=== PATIENT | female | born 1945 | race Caucasian/White ===

== ENCOUNTER 2022-11-25 14:52 | Emergency (ER) | payer MEDICARE, SELFPAY ==
[2022-11-25 15:15] VITALS: BP 130/82; BP 147/85; PULSE 100; PULSE 104; RESP 18; TEMP 36.9; O2SAT 98; BMI 25.4
--- NOTE | 2022-11-25 16:07 | MHC.CM.ED ---
Received case management consult from Dr Hunter. Patient resides at [facility]. She wandered from her facility and ended up at the [facility]. Patient was brought to the ER by EMS. Patient's social media intern, Jared, from [employer] present and bedside with patient. Jared has been in contact with patient's daughter and the director of [facility] to try to transfer patient to a higher level of care in their facility. Received telephone call from patient's daughter, Tara Noland. She can be reached via telephone at [phone]. Tara lives in [place] and is trying to arrange a flight here to assist patient. Per Tara, patient started exhibiting memory issues 2 years ago. Tara tried to convince patient to move closer to her at that time and patient refused. Anticipate patient will stay in ER until safe discharge plan can be arranged. Continue to monitor for d/c needs.
--- NOTE | 2022-11-25 16:50 | ED.GENADULT ---
HPI - General Adult General Chief complaint: General Medical Stated complaint: AMS,LEFT SNF,FOUND BY PD ON LOT PER EMS Time Seen by Provider: 11/25/22 15:03 Source: patient and other Mode of arrival: EMS History of Present Illness HPI narrative: 77-year-old female is brought in by [place] police after she was found to be at the [facility] and had left [facility] regular assisted living facility. Patient's private case preparer and liner is at bedside, Jared, and provides additional information as patient suffers from dementia. He states that patient has been at the facility for approximately 3 weeks after an extensive evaluation and workup through [facility] [place]. Patient's daughter lives in [place], patient states that she does not want to live at [facility] any longer. Related Data Allergies Allergy/AdvReac Type Severity Reaction Status Date / Time No Known Allergies Allergy Verified 11/25/22 15:53 [No Known Allergies*] Review of Systems Review of Systems: Pertinent positives and negatives as stated in HPI PMFSH Past Medical History Source: nursing notes reviewed Physical Exam ED Vital Signs: Vital Signs - 24 hr 11/25/22 15:15 Temperature 98.5 F Pulse Rate 104 H Respiratory Rate 18 Blood Pressure 147/85 H Pulse Oximetry 98 Oxygen Delivery Method Room Air BMI result Body Mass Index 25.4 VITAL SIGNS: Reviewed. GENERAL: Well developed, well nourished, in no acute distress. HEAD: Normocephalic/atraumatic EYES: PERRLA, EOMI OROPHARYNX: no oral lesions noted, posterior pharynx clear NECK: Supple, no adenopathy LUNGS: Normal breath sounds. No adventitious sounds or accessory muscle use. SpO2<98> CARDIOVASCULAR: Regular rate and rhythm without noted murmurs ABDOMEN: Soft, non-tender, non-distended with bowel sounds. SKIN: Inspection of the skin reveals no rashes NEUROLOGIC: Alert and oriented x 2. Strength and sensation to light touch were grossly intact x 4, cranial nerves 2-12 are grossly intact. Medical Decision Making Medical Decision Making MDM Narrative: 77-year-old female who arrives here for escalation care for her underlying dementia as patient clearly needs more structure and containment. Patient is pleasant and redirectable, I asked our case finishing machine adjuster to coordinate with patient's private case finishing machine adjuster to arrange for placement in [facility] memory unit. I have ordered a dinner for patient as well as medication reconciliation. I have been informed by case management that verification of available bed at [facility]. Patient placed in physician observation because the patient needed more time for placement at [facility]. At the time observation was started the patient's vital signs were stable, patient is alert, neuro: Nonfocal, CV RRR, lungs clear Discharge Plan Discharge Clinical Impression: Dementia Patient Disposition: Still a Patient
--- OUTSIDE RECORDS SUMMARY | 2022-11-25 16:58 | XMS_ITS | Continuity of Care Document ---
Author Name Unknown Organization [facility] Address [address] [place] [address]- Care Team Providers Care Drag Out Worker Name Role Phone Ofe Chung MD Primary Care Physician [phone] Encounter [facility] [place] [place] Date(s): 06/06/21 - 06/06/[address] [address]- Discharge Disposition: A-D/C Home Attending Physician: Jesus Wong MD Admitting Physician: Jesus Wong MD Referring Physician: Not on Staff, Referring MD Allergies, Adverse Reactions, Alerts No Known Allergies Medications estradiol 0.1 mg/g vaginal cream See Instructions, 1 Gm Vaginally 3 times a week at bedtime, # 42.5 Gm, 3 Refills, Maintenance, 06/10/19 15:40:00 EST, [facility], 152.7, cm, 06/10/19 13:46:00 EST, Height Start Date: 06/10/19 Status: Ordered levothyroxine 0.05 mg oral tablet 1 tablet = 50 mcg, By Mouth, Daily, # 30 tablet, 0 Refills, Maintenance, 05/08/18 15:40:05 EST, Tablet Start Date: 05/08/18 Status: Ordered Vitamin D3 = 1,000 International_Units, By Mouth, 0 Refills, Maintenance, 09/19/17 10:30:12 EDT Start Date: 09/19/17 Status: Ordered Problem List Condition Effective Dates Status Health Status Inform ant Atrophic vaginitis(Confirmed) Active Uterine fibroid(Confirmed) Active Results Radiology Reports * Exam Date Time Procedure Performing Provider Status 06/06/21 12:18 PM XR Femur 2 Views Right Veronica Maldonado (Verified) Notes: (XR Femur 2 Views Right) Reason For Exam: with Pain;Trauma RESULT: Femur 2 Views Right Femur 2 Views Right CLINICAL INDICATION: Hx of Present Illness: fall 2 7, right hip pain 5 10, able to ambulate, large area of bruising swelling to right lateral thigh, no head strike, no LOC; Reason: Trauma; with Pain;Clinical Question(s): Fracture COMPARISONS: None TECHNIQUE: AP and lateral views of the right femur were obtained. FINDINGS: No fracture or dislocation. There is mild joint space narrowing at the hip and knee joints. Rounded soft tissue prominence within the superficial tissues overlying the right thigh consistent with a hematoma estimated at 8.6 x 6.0 cm. Incidental partially visualized large densely calcified fibroid. IMPRESSION: No fracture or dislocation. Approximately 8.6 x 6.0 cm right lateral left thigh hematoma. Mild arthritic changes at hip and knee joints. Large incidental calcified fibroid. WSN: [id number] Ordering Physician: Jesus Wong Dictated By: Kalpesh Hartman MD Dictated Date/Time: 06/06/21 12:37 p Reviewed By: Kalpesh Hartman MD Signed By: Kalpesh Hartman MD Signed Date/Time: 06/06/21 12:37 pm Transcribed By: SHABBIR Transcribed Date/Time: 06/06/21 12:35 pm Vital Signs Most recent to oldest [Reference Range]: 1 2 Height 153 cm (06/06/21 10:25 AM) 153 cm (06/06/21 10:19 AM) Weight 61 kg (06/06/21 10:25 AM) 61 kg (06/06/21 10:19 AM) Oxygen Saturation [94-100 %] 99 % (06/06/21 12:56 PM) 97 % (06/06/21 10:19 AM) Pulse Rate [55-90 bpm] 76 bpm (06/06/21 12:56 PM) 72 bpm (06/06/21 10:19 AM) Body Mass Index [18.5-24.99] 26.06 *H* (06/06/21 10:19 AM) Blood Pressure [90-138/55-84 mm Hg] 124/ 78mm Hg (06/06/21 12:56 PM) 108/68mm Hg (06/06/21 10:19 AM) Respiratory Rate [16-30 br/min] 18 br/mi n (06/06/21 12:56 PM) 16 br/min (06/06/21 10:19 AM) Temperature [96.8-100.4 DegF] 97.8 DegF (06/06/21 10:19 AM) Mode of Delivery (Oxygen) Room air (06/06/21 12:56 PM) Room air (06/06/21 10:19 AM) Blood pressure sites Arm, left (06/06/21 10:19 AM) Temperature Route Oral (06/06/21 10:19 AM) Dry Weight 61 kg (06/06/21 10:25 AM) 61 kg (06/06/21 10:19 AM) Weight Obtained Via Patient/family state d (06/06/21 10:19 AM) Dry Weight Obtained Via Patient/family s tated (06/06/21 10:19 AM) Social History Social History Type Response Smoking Status Never (less than 100 in lifetime) entered on: 01/22/19 Sex
--- OUTSIDE RECORDS SUMMARY | 2022-11-25 16:58 | XMS_ITS | Continuity of Care Document ---
Author Name Unknown Organization [facility] Address [address] [place] [address]- Care Team Providers Care Internet Researcher Name Role Phone Claudia Barriga MD Primary Care Physician [place] [facility] [place] - 02/19/[address] [address]- Attending Physician: Michael Sahu NP Referring Physician: Claudia Barriga MD Allergies, Adverse Reactions, Alerts No Known Allergies Medications Diovan 40 mg oral tablet Refills 0, Maintenance, 01/30/22 14:07:00 EDT, Partial fill upon patient request if the prescription is for a schedule II opioid drug. Start Date: 01/30/22 Status: Ordered estradiol 0.1 mg/g vaginal cream See Instructions, 1 Gm Vaginally 3 times a week at bedtime, # 42.5 Gm, 3 Refills, Maintenance, 06/10/19 15:40:00 EST, [facility], 152.7, cm, 06/10/19 13:46:00 EST, Height Start Date: 06/10/19 Status: Ordered ketorolac 0.5% ophthalmic solution 0 Refills, Maintenance, 01/30/22 14:08:00 EDT, Partial fill upon patient request if the prescription is for a schedule II opioid drug. Start Date: 01/30/22 Status: Ordered levothyroxine 0.05 mg oral tablet 1 tablet = 50 mcg, By Mouth, Daily, # 30 tablet, 0 Refills, Maintenance, 05/08/18 15:40:05 EST, Tablet Start Date: 05/08/18 Status: Ordered Synthroid 0.025 mg oral tablet 0 Refills, Maintenance, 01/30/22 14:07:00 EDT, Partial fill upon patient request if the prescription is for a schedule II opioid drug. Start Date: 01/30/22 Status: Ordered Vitamin D3 = 1,000 International_Units, By Mouth, 0 Refills, Maintenance, 09/19/17 10:30:12 EDT Start Date: 09/19/17 Status: Ordered Problem List Condition Confirmation Course Effective Dates Status Health St atus Informant Atrophic vaginitis Confirmed Active Cognitive impairment Confirmed Active Uterine fibroid Confirmed Active Social History Social History Type Response Smoking Status Never (less than 100 in lifetime) entered on: 01/22/19 Sex Patient Care team information Personnel Name: Claudia Barriga MD Address: Address: [address] [place] [id number]
--- OUTSIDE RECORDS SUMMARY | 2022-11-25 16:58 | XMS_ITS | Continuity of Care Document ---
Author Name Unknown Organization [facility] Address [address] [place] [address]- Care Team Providers Care Sales And Marketing Associate Name Role Phone Ofe Chung MD Primary Care Physician Encounter [facility] [place] Date(s): 10/24/21 - 12/24/[address] [address]- Encounter Diagnosis Primary hyperparathyroidism(Final) - Discharge Disposition: A-D/C Home Attending Physician: Catherine Bright MD Admitting Physician: Catherine Bright MD Referring Physician: Catherine Bright MD Allergies, Adverse Reactions, Alerts No Known [...] ant Atrophic vaginitis(Confirmed) Active Uterine fibroid(Confirmed) Active Social History Social History Type Response Smoking Status Never (less than 100 in lifetime) entered on: 01/22/19 Sex Care Team Personnel Name: Ofe Chung MD Address: [address] [place], [place] [address]
--- OUTSIDE RECORDS SUMMARY | 2022-11-25 16:58 | XMS_ITS | Continuity of Care Document ---
Author Name Unknown Organization [facility] Address [address] [place] [address]- Care Team Providers Care Director Weights And Measures Name Role Phone Ofe Chung MD Primary Care Phys[id number] Date([facility]/10/[facility] - 06/17/19 [facility] FREELANCE ART DIRECTOR [address] [place] [address]- [facility] Attending Physician: Shavon Villa MD Allergies, Adverse Reactions, Alerts Substance Reaction Severity Status NKA Active Medications estradiol 0.1 mg/g vaginal cream See [...] ant Atrophic vaginitis(Confirmed) Active Uterine fibroid(Confirmed) Active Vital Signs Most recent to oldest [Reference Range]: 1 Height 152.7 cm (06/10/19 1:46 PM) Weight 60 kg (06/10/19 1:46 PM) Body Mass Index [18.5-24.99] 25.73 *H* (06/10/19 1:46 PM) Blood Pressure [90-138/55-84 mm Hg] 138/ 72mm Hg (06/10/19 1:46 PM) Blood pressure sites Arm, right (06/10/19 1:46 PM) Weight Obtained Via Standing scale (06/10/19 1:46 PM) Social History Social History Type Response Smoking Status Never (less than 100 in lifetime) entered on: 01/22/19 Sex
--- OUTSIDE RECORDS SUMMARY | 2022-11-25 16:58 | XMS_ITS | Continuity of Care Document ---
Author Name Unknown Organization [facility] Address [address] [place] [address]- Care Team Providers Care Physician Office Nurse Name Role Phone Ofe Chung MD Primary Care Physician [place] [facility] [place](s[place] 10/24/21 - 11/23/[address] [address]- Attending Physician: Admdina, Edin Admitting Physician: Admtr, Ar8 Referring Physician: Admtr, Ar8 Allergies, Adverse Reactions, Alerts No Known Allergies [...]
--- OUTSIDE RECORDS SUMMARY | 2022-11-25 16:58 | XMS_ITS | Continuity of Care Document ---
Author Name Unknown Organization [facility] Address [address] [place] [address]- Care Team Providers Care Service Mechanic Name Role Phone Sheldon GALLEGO, Ofe Primary Care Physician [phone] [place] [facility] [place] 04[place]16/19 [facility] DISTRICT BRANCH MANAGER [address] [place] [address]- [facility] Attending Physician: Shavon Villa MD Allergies, Adverse Reactions, Alerts Substance Reaction Severity Status NKA Active Medications estradiol 0.1 mg/g vaginal cream See Instructions, 1 Gm Vaginally 3 times a week at bedtime for 2 months, then twice a week, # 42 Gm, 2 Refills, Maintenance, 01/22/19 15:44:22 EDT Start Date: 01/22/19 Status: Ordered levothyroxine 0.05 mg oral tablet [...] oldest [Reference Range]: 1 Height 152.7 cm (04/09/19 10:22 AM) Weight 60.6 kg (04/09/19 10:22 AM) Body Mass Index [18.5-24.99] 25.99 *H* (04/09/19 10:22 AM) Blood Pressure [90-138/55-84 mm Hg] 138/ 70mm Hg (04/09/19 10:22 AM) Blood pressure sites Arm, right (04/09/19 10:22 AM) Weight Obtained Via Standing scale (04/09/19 10:22 AM) Social History Social History Type Response Smoking Status Never (less than 100 in lifetime) entered on: 01/22/19 Sex
--- OUTSIDE RECORDS SUMMARY | 2022-11-25 16:58 | XMS_ITS | Continuity of Care Document ---
Author Name Unknown Organization [facility] Address [address] [place] [address]- Care Team Providers Care Etcher Machine Name Role Phone Claudia Barriga MD Primary Care Physician [phone] Encounter [facility] [place] Date(s): 01/30/22 - 02/06/[address] [address]- Attending Physician: Michael Sahu NP Referring Physician: [...] St atus Informant Atrophic vaginitis Confirmed Active Uterine fibroid Confirmed Active Social History Social History Type Response Smoking Status Never (less than 100 in lifetime) entered on: 01/22/19 Sex Patient Care team information Personnel Name: Claudia Barriga MD Address: Address: [address] [place] [address]
--- OUTSIDE RECORDS SUMMARY | 2022-11-25 16:58 | XMS_ITS | Continuity of Care Document ---
Author Name Unknown Organization [facility] Address [address] [place] [address]- Care Team Providers Care Nurse Aide Name Role Phone Ofe Chung MD Primary Care Physician [place] [facility] [place] [id number] Date(s): 06/10/19 - 06/20/19 [facility] PATENT CHEMIST [address] [place] [address]- [facility] Attending Physician: Edin Wiseman Admitting Physician: Edin Wiseman Referring Physician: trEdin Allergies, Adverse Reactions, Alerts Substance Reaction Severity [...]
--- OUTSIDE RECORDS SUMMARY | 2022-11-25 16:58 | XMS_ITS | Continuity of Care Document ---
Author Name Unknown Organization [facility] Address [address] [place] [address]- Care Team Providers Care Screen Stretcher Name Role Phone Claudia Barriga MD Primary Care Physician Encounter [facility] [place] Date(s): 04/17/22 - 05/17/[address] [address]- Attending Physician: Edin Wiseman Admitting Physician: Edin Wiseman Referring Physician: trEdin Allergies, Adverse Reactions, Alerts No Known Allergies [...] on: 01/22/19 Sex Patient Care team information Care Team Personnel Name: Claudia Barriga MD Position: Reference Physician Member Role: PCP Address: Address: [address] [place], [place] [address] [address]- Care Team Related Persons Name: RASHMI BENNETT Name: BRIAN HERNANDEZ Name: ESTEFANY AHUMADA Name: MEERA AHUMADA Address: home DECLINED TO [place] [address]
--- OUTSIDE RECORDS SUMMARY | 2022-11-25 16:58 | XMS_ITS | Continuity of Care Document ---
Author Name Unknown Organization [facility] Address [address] [place] [address]- Care Team Providers Care Organ Pipe Maker Metal Name Role Phone Claudia Barriga MD Primary Care Physician [place] [facility] [place] - 04/04/[address] [address]- Attending Physician: Edin Wiseman Admitting Physician: Edin Wiseman Referring Physician: AdmtrEdin Allergies, Adverse Reactions, Alerts No Known Allergies [...] Reference Physician Member Role: PCP Address: Address: [address] [place], [place] [address] [address]- Care Team Related Persons Name: RASHMI BENNETT Name: BRIAN HERNANDEZ Name: ESTEFANY AHUMADA Name: MEERA AHUMADA Address: home DECLINED TO GIVE ADDRESS [facility] [address]
--- OUTSIDE RECORDS SUMMARY | 2022-11-25 16:58 | XMS_ITS | Continuity of Care Document ---
Author Name Unknown Organization [facility] Address [address] [place] [address]- Care Team Providers Care Survey Research Associate Name Role Phone Claudia Barriga MD Primary Care Physician [id number] Date(s): 03/05/22 - 03/12/[address] [address]- Attending Physician: Osiris GALLEGO, Mason Patel Allergies, Adverse Reactions, Alerts No Known Allergies [...] Reference Physician Member Role: PCP Address: Address: [address] [place] [address] [place] [address]- Care Team Related Persons Name: RASHMI BENNETT Name: BRIAN HERNANDEZ Name: ESTEFANY AHUMADA Name: MEERA AHUMADA Address: home DECLINED TO GIVE ADDRESS [place] [address]
--- NOTE | 2022-11-25 18:14 | PHA.MEDREC ---
Pharmacy Consult ? Medication Reconciliation Pharmacy has completed the medication reconciliation. Patient is from [facility].
--- NOTE | 2022-11-25 18:33 | PC.NURSE ---
Late entry: Pt A&Ox2, reports she was detained by police for going into [facility] and attempting to get a ride back to her home in [place]. Pt sectioned by PD and brought in for not being able to care for self. Pt denies any pain. Pt attempting to walk out of ED x 2, multiple redirections needed. 1:1 sitter at bedside. Given dinner tray. Pt ambulated to BR independently with steady gait.
--- NOTE | 2022-11-25 20:43 | MHC.EDTECH ---
this card writer hand attempted to do a set of vitals. Pt refused stating she doesn't need them patient then told me to leave the room.
--- NOTE | 2022-11-25 21:00 | PC.NURSE ---
pt refusing medications, refusing vital signs, and refusing to change into hospital clothes. pt upset that she has to stay the night in the hospital. pt continues to wander and exit seek, redirected multiple times back to room. attempted to give patient po ativan but refused. sitter in place. will ctm.
[2022-11-26 06:47] VITALS: BP 144/81; PULSE 73; RESP 18; O2SAT 98
[2022-11-26] MEDS: Valsartan 80 MG TABLET PO (09:32)
[2022-11-26] MEDS: amLODIPine Besylate 5 MG TABLET PO (09:32)
--- NOTE | 2022-11-26 10:13 | MHC.CM.ED ---
Addendum entered by Daly Lyons 11/26/22 11:17: Received return telephone call from Jared. [facility] does not have a bed available on their locked memory unit. Jared spoke with Astrid at [facility]. Patient's daughter, Tara, is flying to the area from [place] today. Original Note: Patient remains in ER. Trying to get update from Jared, social media sr strategy manager for [employer], via telphone at [phone]. Left message requesting return telephone call. Continue to monitor for d/c needs.
[2022-11-26 11:56] LABS: Appearance Urine Clear; Color Urine Yellow; Glucose Urine UA Negative (Negative); Leukocyte Esterase Urine Large (3+) (Negative); Nitrite Urine Negative (Negative); PH 7.5 (5.0-9.0); UMIC TRIGGER UACC YES; Urine Blood Negative (Negative); Urine Ketones Negative (Negative); Urine Protein Negative (Neg-Trace)
[2022-11-26 12:00] LABS: Bacteria Urine None Seen (None Seen); Hyaline Casts Urine 0-2 /LPF (0-2); RBC Urine 0-2 /HPF (0-2); Squamous Epithelial Cell Urine 0-2 /HPF (0-2); UACC Culture Trigger YES
[2022-11-26] MEDS: Magnesium Hydrox/Alum Hydrox 30 ML ORAL.SUSP PO (13:08)
[2022-11-26] MEDS: Docusate Sodium 100 MG CAPSULE PO (13:08)
[2022-11-26 15:42] VITALS: BP 122/75; PULSE 70; RESP 16; TEMP 36.7; O2SAT 95
--- NOTE | 2022-11-26 20:16 | PC.NURSE ---
meet this pt. laying down in the bed cooperate. complained about right leg pain 01/06. offered acetaminophen but refused. took night meds by JUN and back to bed. CONT monitor wandering and any other changes. camera in place.
[2022-11-26 21:23] VITALS: BP 102/61; PULSE 66; RESP 16; TEMP 36.7; O2SAT 96
[2022-11-27 06:00] VITALS: BP 117/64; PULSE 78; RESP 16; TEMP 36.4; O2SAT 95
[2022-11-27] MEDS: Valsartan 80 MG TABLET PO (08:51)
[2022-11-27] MEDS: amLODIPine Besylate 5 MG TABLET PO (08:51)
--- NOTE | 2022-11-27 09:23 | PC.NURSE ---
Addendum entered by Ivana Rebollar RN 11/27/22 10:29: pt was trying to get out of ED over flow area. Redirected back to bed but refused to take seroquel. pt remained alert and oriented self and place. Original Note: pt is alert and oriented to self and place. took all her morning meds without difficulty. pt aware that he has dementia and forgetful. no complain of pain.
--- NOTE | 2022-11-27 11:50 | MHC.CM.ED ---
Addendum entered by Daly Lyons 11/27/22 14:24: Per Astrid, Nurse from [facility] will be on-site tomorrow 11/28 at 9am. Patient's daughter, Tara at bedside and aware. Original Note: Patient remains in ER overflow. Received telephone call from Astrid of [facility]. Clinical updates provided. Astrid will arrange for their nurse to come on-site to [facility] to evaluate patient. Tara, patient's daughter/HCP, aware. Tara has arrived from [place] and will be in ER later to visit patient. HCP invoked by Dr Alexis. Continue to monitor for d/c needs.
[2022-11-27 19:35] VITALS: BP 109/67; PULSE 78; RESP 16; TEMP 36.3; O2SAT 96
--- NOTE | 2022-11-27 20:04 | PC.NURSE ---
Yudelka, patients HC Proxy called at the request of the patients daughter, Tara. They are requesting that a Heather Solis not be allowed to visit Marina while she is her. I told Yudelka I would pass this along to the Nursing Appraiser Boats And Marine as well as the next RN. I also asked Yudelka to have Tara bring in a copy of Marina's HC Proxy for our files when she visits tomorrow. Marina overheard my end of the conversation and was becoming upset. I did not inform Marina of the request that Heather Solis not visit but did explain that Yudelka and Tara were going to get a copy of the HC proxy to us for our files. Pt was ably to tell me that Yudelka was her friend and HC Proxy and Tara was her daughter and Power of Public Relations Account Supervisor. She states that Heather is her friend. Pt is AOX2, pleasant and redirectable. Pt is a flight risk 1:1 at bedside. When pt was agitated due to phone call pt stated the police lied to her but then stated she did not want to get into it . Pt agreed there was nothing to do about it now as it is almost 8pm and understands she will be spending the night here. Pt able to calm down and is resting in bed talking to 1:1. Will continue to monitor.
[2022-11-28 05:36] VITALS: BP 133/77; PULSE 63; RESP 20; TEMP 36.8; O2SAT 97
[2022-11-28 07:54] VITALS: BP 107/54; PULSE 67; RESP 16; TEMP 35.8; O2SAT 96
[2022-11-28] MEDS: Valsartan 80 MG TABLET PO (08:08)
[2022-11-28] MEDS: amLODIPine Besylate 5 MG TABLET PO (08:08)
--- NOTE | 2022-11-28 10:03 | MHC.CM.ED ---
Addendum entered by Daly Lyons 11/28/22 14:43: Tara and Jared at patient's bedside. Tara is requesting Heather Handy not be allowed to visit patient. She is patient's former roommate and tends to rile patient up instead of calming her down. Security has been made aware. Copy of HCP and POA provided by Tara. Original Note: Patient remains in ER overflow. Ricardo from [facility] on-site for visit with patient. Javier and Samantha will return to facility. There is more medical information they need that [facility] is unable to provide because patient has not been here before. Patient's dementia work up was completed at [facility]. Left message for patient's daughter, Tara, via telephone at [phone], explaining on-site visit was completed. Continue to monitor for d/c needs.
--- NOTE | 2022-11-28 12:22 | PC.NURSE ---
assumed care of pt at 1100, pt a&ox2, vss, flight risk - 1:1 at bedside, denies any pain at this time, at 100% of lunch, per prior nursing notes Heather Solis (friend) isn't allowed to visit pt at request of HCP and POA.
--- NOTE | 2022-11-28 14:34 | PC.NURSE ---
daughter and social science manager at bedside.
--- NOTE | 2022-11-28 20:31 | PC.NURSE ---
patient received all medications as ordered per the daughter patient vitals are stable patient was placed in a secure less stimulating area with a closed door due to patient was complaining of the light and unable to sleep
[2022-11-29 06:00] VITALS: BP 128/76; PULSE 65; RESP 18; TEMP 36.1; O2SAT 96
[2022-11-29] MEDS: Valsartan 80 MG TABLET PO (08:10)
[2022-11-29] MEDS: amLODIPine Besylate 5 MG TABLET PO (08:10)
[2022-11-29] MEDS: Docusate Sodium 100 MG CAPSULE PO (13:30)
--- NOTE | 2022-11-29 15:24 | MHC.CM.ED ---
Patient remains in ER overflow. Per Astrid at [facility], they are going to accept patient. However, the apartment that is available needs to be emptied out of hospice equipment and painted. Anticipate apartment will be ready Saturday or Saturday. Astrid made Tara aware. Continue to monitor for d/c needs.
--- NOTE | 2022-11-29 18:13 | PC.NURSE ---
A/Ox2. VSS. 1:1 sitter due to flight risk. Awaiting placement.
[2022-11-30 06:03] VITALS: BP 152/86; PULSE 73; RESP 18; TEMP 36.4; O2SAT 95
--- NOTE | 2022-11-30 07:07 | PC.NURSE ---
Alert and responsive. oob ambulating to bathroom. Pleasant and cooperative. Denies pain or discomfort
[2022-11-30] MEDS: amLODIPine Besylate 5 MG TABLET PO (08:37)
[2022-11-30] MEDS: Valsartan 80 MG TABLET PO (08:37)
--- NOTE | 2022-11-30 09:08 | PC.NURSE ---
Calm and cooperative. PO meds taken as ordered. No wandering or attempts to exit facility at this time.
[2022-11-30 14:00] VITALS: BP 105/66; PULSE 73; RESP 18; TEMP 36.5; O2SAT 97
--- NOTE | 2022-11-30 14:23 | PC.NURSE ---
Calm and cooperative, into day room playing FRANDY with staff. Good po intake and appetite for lunch.
[2022-11-30 20:50] VITALS: BP 149/65; PULSE 72; RESP 18; TEMP 36.9; O2SAT 97
--- NOTE | 2022-11-30 22:27 | PC.NURSE ---
Pt resting at the bedside. No apparent distress noted. VSS. 1:1 sitter at bedside. Able to ambulate to the restroom independently.
--- NOTE | 2022-11-30 23:28 | PC.NURSE ---
pt moved to 6H with sitter due to the need for a sitter pt wandering to the door with her clothing on. pt intercepted with security no injury no harm. pt confused and refusing meds (seroquil) at this time. sitter present. pt made aware of the plan.
[2022-12-01] MEDS: LORazepam 1 MG TABLET PO ×2 (01:47→20:36)
--- NOTE | 2022-12-01 02:03 | PC.NURSE ---
pt refused seroquel administration but requesting ativan to help her get to sleep. MD Cordova ordering for pt. pt in hallway with bright lights loud noise and lots of distraction. sitter in place. pt being calm and cooperative at this time . will ctm
--- NOTE | 2022-12-01 04:40 | PC.NURSE ---
pt is asleep comfortably on stretcher respirations even and unlabored pt is in no apparent distress. sitter in place as pt is flight risk. will ctm
[2022-12-01 07:20] VITALS: BP 118/71; PULSE 71; RESP 16; TEMP 37.1; O2SAT 95
[2022-12-01] MEDS: amLODIPine Besylate 5 MG TABLET PO (08:42)
[2022-12-01] MEDS: Valsartan 80 MG TABLET PO (08:42)
--- NOTE | 2022-12-01 09:13 | MHC.EDTECH ---
Patient brought to POD to shower. Initially she was in agreement to change into hospital gown and pants if she was brought to the shower. T/w gave patient hospital attire and mesh underwear and Patient refused to change into hospital attire, even though her own clothes were soiled. Patient given soap and towels/washcloths for shower. Walked Patient back out to her stretcher.
[2022-12-01 16:02] VITALS: BP 119/70; PULSE 79; RESP 18; TEMP 36.8; O2SAT 96
--- NOTE | 2022-12-01 20:38 | PC.NURSE ---
pt calm and cooperative, sitter at bedside, medicated with 1 mg of ativan po
[2022-12-02 01:27] VITALS: BP 126/78; PULSE 84; RESP 16; O2SAT 97
[2022-12-02 08:45] VITALS: BP 117/86; PULSE 96; RESP 18; TEMP 36.6; O2SAT 96
[2022-12-02] MEDS: amLODIPine Besylate 5 MG TABLET PO (08:46)
[2022-12-02] MEDS: Valsartan 80 MG TABLET PO (08:46)
--- NOTE | 2022-12-02 09:41 | MHC.EDTECH ---
brought Patient into the pod to take shower, with supervision of tech, lined change, room clean. RN aware
--- NOTE | 2022-12-02 10:29 | PC.NURSE ---
patient brought over to pod to shower by rubin, patient daughter here to visit at the bedside.
[2022-12-02 14:07] VITALS: BP 116/73; PULSE 74; RESP 18; O2SAT 96
--- NOTE | 2022-12-02 15:19 | MHC.CM.ED ---
Pt will d[facility]c to [facility] soon as her residence has been painted - estimates for transfer are 12/03 or 12/04. Pt given update on status. ED CM to follow
[2022-12-02 15:44] VITALS: BP 126/71; PULSE 78; RESP 16; TEMP 36.9; O2SAT 94
--- NOTE | 2022-12-02 17:20 | PC.NURSE ---
patient has remained calm and cooperative through out shift, patient shows no signs of distress. patient sitting up in chair reading the news paper, video monitor on patient at bedside
--- NOTE | 2022-12-02 18:30 | ED_ITS ---
HPI - General Adult General Chief complaint: General Medical Stated complaint: AMS,LEFT SNF,FOUND BY PD ON LOT PER EMS Time Seen by Provider: 11/25/22 15:03 Source: patient and other Mode of arrival: EMS Related Data Home Medications Medication Instructions Recorded Confirmed amlodipine 5 mg tablet 5 mg PO DAILY 11/25/22 11/25/22 valsartan 80 mg tablet (Diovan) 80 mg PO DAILY 11/25/22 11/25/22 Allergies Allergy/AdvReac Type Severity Reaction Status Date / Time No Known Allergies Allergy Verified 11/25/22 15:53 [No Known Allergies*] [facility] Social History Social History Alcohol intake: never Smoked in Last 30 Days: No Use of substances other than those prescribed or required for medical reasons: No Advance Directives: No Advance Directives Information Provided: No Physical Exam ED Vital Signs: Vital Signs - 24 hr 12/02/22 01:27 12/02/22 08:45 12/02/22 14:07 Temperature 97.9 F Pulse Rate 84 96 74 Respiratory Rate 16 18 18 Blood Pressure 126/78 117/86 116/73 Pulse Oximetry 97 96 96 Oxygen Delivery Method Room Air Room Air Room Air 12/02/22 15:44 Temperature 98.5 F Pulse Rate 78 Respiratory Rate 16 Blood Pressure 126/71 Pulse Oximetry 94 Oxygen Delivery Method Room Air BMI result Body Mass Index 25.4 Medications Administered Generic Name Dose Route Start Last Admin Trade Name Freq PRN Reason Stop Dose Admin Amlodipine Besylate 5 mg 11/26/22 09:00 12/02/22 08:46 Amlodipine Besylate 5 Mg Tablet PO 5 mg DAILY [facility] Administration Protocol Valsartan 80 mg 11/26/22 09:00 12/02/22 08:46 Valsartan 80 Mg Tablet PO 80 mg DAILY [facility] Administration Protocol Discontinued Medications Generic Name Dose Route Start Last Admin Trade Name Freq PRN Reason Stop Dose Admin Al Hydroxide/Mg Hydroxide 30 ml 11/26/22 13:04 11/26/22 13:08 Magnesium Hydrox/Alum Hydrox 30 Ml Oral.Susp PO 11/26/22 13:05 30 ml ONCE ONE Administration Cefuroxime Axetil 250 mg 11/26/22 13:15 11/30/22 20:56 Cefuroxime Axetil 250 Mg Tablet PO 12/03/22 21:00 250 mg BID LAUREL Administration Docusate Sodium 100 mg 11/26/22 13:04 11/26/22 13:08 Docusate Sodium 100 Mg Capsule PO 11/26/22 13:05 100 mg ONCE ONE Administration Docusate Sodium 100 mg 11/29/22 12:59 11/29/22 13:30 Docusate Sodium 100 Mg Capsule PO 11/29/22 13:00 100 mg ONCE ONE Administration Lorazepam 1 mg 11/25/22 20:42 11/25/22 21:20 Lorazepam 1 Mg Tablet PO 11/25/22 20:43 Not Given ONCE ONE Lorazepam 1 mg 12/01/22 01:44 12/01/22 01:47 Lorazepam 1 Mg Tablet PO 12/01/22 01:45 1 mg ONCE ONE Administration Lorazepam 1 mg 12/01/22 20:23 12/01/22 20:36 Lorazepam 1 Mg Tablet PO 12/01/22 20:24 1 mg ONCE ONE Administration Medical Decision Making Lab Data Labs: Lab Results 11/26/22 Range/Units 11:48 Urine Color Yellow Urine Appearance Clear Urine pH 7.5 (5.0-9.0) Ur Specific [place] 1.010 (1.005-1.025) Urine Protein Negative (Neg-Trace) mg/dL Urine Glucose (UA) Negative (Negative) mg/dL Urine Ketones Negative (Negative) mg/dL Urine Blood Negative (Negative) Urine Nitrite Negative (Negative) Ur Leukocyte Esterase Large (3+) H (Negative) Urine RBC 0-2 (0-2) /HPF Urine WBC 11-20 H (0-5) /HPF Ur Squamous Epith Cells 0-2 (0-2) /HPF Urine Bacteria None Seen (None Seen) Hyaline Casts 0-2 (0-2) /LPF Discharge Plan Discharge Clinical Impression: Dementia Patient Disposition: Still a Patient Prescriptions: No Action valsartan [Diovan] 80 mg tablet 80 mg PO DAILY amlodipine 5 mg tablet 5 mg PO DAILY
[2022-12-02 20:12] VITALS: BP 141/76; PULSE 88; RESP 13; TEMP 36.4; O2SAT 96
--- NOTE | 2022-12-03 02:50 | PC.NURSE ---
patient up in bed with eyes open patient showing no signs of distres
[2022-12-03] MEDS: QUEtiapine Fumarate 25 MG TABLET PO ×2 (03:57→22:46)
[2022-12-03 06:47] VITALS: BP 107/59; PULSE 65; O2SAT 96
[2022-12-03 08:08] VITALS: BP 156/103; PULSE 89; RESP 16
[2022-12-03] MEDS: Valsartan 80 MG TABLET PO (08:11)
[2022-12-03] MEDS: amLODIPine Besylate 5 MG TABLET PO (08:11)
--- NOTE | 2022-12-03 09:26 | PC.NURSE ---
pt axo self, respirations even and unlabored, skin wpd. pt ate breakfast, requests shower. bp elevated; pt medicated per mar. pt taking shower with tech at this time.
--- NOTE | 2022-12-03 10:46 | PC.NURSE ---
pt return from shower. resting in stretcher; extra blankets provided. all needs met at this time, call law within reach.
--- NOTE | 2022-12-03 10:47 | MHC.CM.ED ---
Patient remains in ER. Patient can d/c to [facility] via BLS tomorrow, 12/04 at 130pm. [facility] booked. [facility] nec with chart. Continue to monitor for d/c needs.
--- NOTE | 2022-12-03 13:16 | PC.NURSE ---
assumed care of pt at 1200, pt repositioned into hospital bed, camera at bedside, pt trying to get up and take a walk, redirected back to bed. plan for pt to discharge to the [facility] 12/04 at 1330 via BLS.
[2022-12-03 15:31] VITALS: BP 91/52; PULSE 78; RESP 18; TEMP 36.7; O2SAT 95
--- NOTE | 2022-12-03 22:54 | PC.NURSE ---
Patient ambulates independently, telesitter camera active. Patient easily redirectable, alert and oriented to person, time. denies pain or discomfort at this time, prn seroquel per jun. callbell within reach.
[2022-12-04 06:00] VITALS: BP 102/59; PULSE 71; RESP 18; TEMP 36.7; O2SAT 97
[2022-12-04 08:17] VITALS: BP 116/66; PULSE 82; RESP 16
[2022-12-04] MEDS: Valsartan 80 MG TABLET PO (08:17)
[2022-12-04] MEDS: amLODIPine Besylate 5 MG TABLET PO (08:17)
--- NOTE | 2022-12-04 09:42 | MHC.CM.ED ---
Patient remains in ER overflow. Will go to [facility] via BLS at 130pm. Patient, Reina VASQUEZ and Esme HOLLAND aware. Left voicemail providing this information to daughter, Tara, via telephone at [phone]. Continue to monitor for d/c needs.
[2022-12-04] MEDS: QUEtiapine Fumarate 25 MG TABLET PO (11:24)
--- NOTE | 2022-12-04 12:38 | PC.NURSE ---
assumed care of pt at 0700. pt alert but confused. medicated per mar, currently resting comfortable in hospital bed. sitter camera in place for pt safety. pt to be transported via EMS to [facility] assisted living at 1330. call law within reach, pt needs met at this time
== END 2022-12-04 14:35 | disposition home or self-care (01) ==
PROVIDERS: Physician Assistant; Emergency Provider Student in an Organized Health Care Education/Training Program; PCP Family Medicine
DX: F03.918 Unspecified dementia, unspecified severity, with other behavioral disturbance (principal); Z79.899 Other long term (current) drug therapy; R41.82 Altered mental status, unspecified
CPT/HCPCS: 81001; 87086; 99284; 99285

== ENCOUNTER 2023-01-01 13:33 | Emergency (ER) | payer MEDICARE, SELFPAY ==
[2023-01-01 13:42] VITALS: BP 135/90; PULSE 88; O2SAT 99
[2023-01-01 13:43] VITALS: BP 133/69; PULSE 90; RESP 17; TEMP 36.6; O2SAT 94; BMI 24.4
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
[2023-01-01 14:30] LABS: Appearance Urine Clear; Color Urine Yellow; Glucose Urine UA Negative (Negative); Leukocyte Esterase Urine Large (3+) (Negative); Nitrite Urine Negative (Negative); Specific Gravity - Urine <= 1.005 (1.005-1.025); UMIC TRIGGER UACC YES; Urine Blood Negative (Negative); Urine Ketones Negative (Negative); Urine Protein Negative (Neg-Trace)
--- OUTSIDE RECORDS SUMMARY | 2023-01-01 14:30 | XMS_ITS | Continuity of Care Document ---
Author Name Unknown Organization [facility] ter Address [address] [place] [id number]- Care Team Providers Care Production Estimator Name Role Phone Claudia Barriga MD Primary Care Physician [place] [facility] 12/14/22 - 12/15/[address] [id number]- Encounter Diagnosis Fall(Final) - 12/15/22 Discharge Disposition: A-D/C Home Attending Physician: Pablo Cabezas MD Admitting Physician: Pablo Cabezas MD Referring Physician: Not on Staff, Referring [...] impairment Confirmed Active Uterine fibroid Confirmed Active Results Radiology Reports * Exam Date Time Procedure Performing Provider Status 12/14/22 9:[address] Cervical Spine W/O Contrast Colon , Marga; Auth (Verified) Notes: (CT Cervical Spine W/O Contrast) Reason For Exam: Neck trauma, dangerous injury mechanism;Other: RESULT: CT Cervical Spine W/O Contrast CT head without contrast CT cervical spine without contrast INDICATION/: Head and neck injury after fall. Rule out hemorrhage and fracture. COMPARISON: MRI 12/21/2019 TECHNIQUE: Incremental CT scan through the head and spiral CT through the cervical spine without contrast, formatted in multiple planes. The cervical portion of the exam was performed with automatic exposure control. CTDIvol Body: 7.90 mGy, DLP Body: 207 mGy*cm. CTDIvol Head: 41.80 mGy, DLP Head: 672 mGy*cm. FINDINGS: GASTROENTEROLOGY PROFESSOR VIEW FINDINGS: No unexpected findings. BRAIN: No parenchymal hemorrhage or swelling.. Mcintyre-white matter differentiation is well preserved. BASILAR CISTERNS: Normal. EXTRA-AXIAL SPACES: No subarachnoid, subdural or epidural hemorrhage. CALVARIUM, SKULL BASE AND SCALP: No bone lesions or fractures. Unremarkable soft tissues. CERVICO-OCCIPITAL JUNCTION: Intact. ODONTOID PROCESS and C1/2 ARTICULATION: Intact. LOWER CERVICAL SPINE: No fracture or malalignment. Slight widening of the anterior disc space at C6-7 is not significantly changed. Increased moderate multifocal degenerative changes. OTHER BONES: The portions of the clavicles, scapulas and upper ribs included on the exam are normal. CERVICAL SOFT TISSUES: Normal. No hematoma. LUNG APICES: Clear. No pneumothorax. IMPRESSION: No acute abnormality of the head or cervical spine. WSN: [id number] Ordering Physician: Marcus Simpson Dictated By: Mason Stock MD Dictated Date/Time: 12/14/22 9:48 pm Reviewed By: Mason Stock MD Signed By: Mason Stock MD Signed Date/Time: 12/14/22 9:48 pm Transcribed By: SHABBIR Transcribed Date/Time: 12/14/22 9:44 pm * Exam Date Time Procedure Performing Provider Status 12/14/22 9:[address] Head/Brain W/O Contrast Colon , Tat barak; Auth (Verified) Notes: (CT Head/Brain W/O Contrast) Reason For Exam: Trauma RESULT: CT Head/Brain W/O Contrast CT head without contrast CT cervical spine without contrast INDICATION/: Head and neck injury after fall. Rule out hemorrhage and fracture. COMPARISON: MRI 12/21/2019 TECHNIQUE: Incremental CT scan through the head and spiral CT through the cervical spine without contrast, formatted in multiple planes. The cervical portion of the exam was performed with automatic exposure control. CTDIvol Body: 7.90 mGy, DLP Body: 207 mGy*cm. CTDIvol Head: 41.80 mGy, DLP Head: 672 mGy*cm. FINDINGS: GASTROENTEROLOGY PROFESSOR VIEW FINDINGS: No unexpected findings. BRAIN: No parenchymal hemorrhage or swelling.. Mcintyre-white matter differentiation is well preserved. BASILAR CISTERNS: Normal. EXTRA-AXIAL SPACES: No subarachnoid, subdural or epidural hemorrhage. CALVARIUM, SKULL BASE AND SCALP: No bone lesions or fractures. Unremarkable soft tissues. CERVICO-OCCIPITAL JUNCTION: Intact. ODONTOID PROCESS and C1/2 ARTICULATION: Intact. LOWER CERVICAL SPINE: No fracture or malalignment. Slight widening of the anterior disc space at C6-7 is not significantly changed. Increased moderate multifocal degenerative changes. OTHER BONES: The portions of the clavicles, scapulas and upper ribs included on the exam are normal. CERVICAL SOFT TISSUES: Normal. No hematoma. LUNG APICES: Clear. No pneumothorax. IMPRESSION: No acute abnormality of the head or cervical spine. WSN: [id number] Ordering Physician: Marcus Simpson Dictated By: Mason Stock MD Dictated Date/Time: 12/14/22 9:48 pm Reviewed By: Mason Stock MD Signed By: Mason Stock MD Signed Date/Time: 12/14/22 9:48 pm Transcribed By: SHABBIR Transcribed Date/Time: 12/14/22 9:44 pm Vital Signs Most recent to oldest [Reference Range]: 1 2 3 Oxygen Saturation [94-100 %] 98 % (12/15/22 12:46 AM) 95 % (12/14/22 9:14 PM) 95 % (12/14/22 8:05 PM) Pulse Rate [55-90 bpm] 62 bpm (12/15/22 12:46 AM) 68 bpm (12/14/22 9:14 PM) 68 bpm (12/14/22 8:05 PM) Blood Pressure [90-138/55-84 mm Hg] 118/66mm Hg (12/15/22 12:46 AM) 121/75mm Hg (12/14/22 9:14 PM) 121/72mm Hg (12/14/22 8:05 PM) Respiratory Rate [16-30 br/min] 18 br/min (12/15/22 12:46 AM) 18 br/min (12/14/22 9:14 PM) 18 br/min (12/14/22 8:05 PM) Temperature [96.8-100.4 DegF] 98.2 DegF (12/15/22 12:46 AM) 97.5 DegF (12/14/22 9:14 PM) 97.5 DegF (12/14/22 8:05 PM) Mode of Delivery (Oxygen) Room air (12/15/22 12:46 AM) Room air (12/14/22 9:14 PM) Room air (12/14/22 8:05 PM) Blood pressure sites Arm, left (12/15/22 12:46 AM) Arm, right (12/14/22 9:14 PM) Arm, left (12/14/22 8:05 PM) Temperature Route Oral (12/15/22 12:46 AM) Oral (12/14/22 9:14 PM) Oral (12/14/22 8:05 PM) Social History Social History Type Response Smoking Status Never (less than 100 in lifetime) entered on: 01/22/19 Sex EKG study * Event Display: EKG Authored Date: [id number] * Event Display: ECG 12-Lead Authored Date: Please click on pdf link to open report * Event Display: ECG 12-Lead Authored Date: Ventricular Rate: 69 BPM Atrial Rate: 69 BPM P-R Interval: 156 ms QRS Duration: 78 ms Q-T Interval: 404 ms QTC Calculation(Bazett): 432 ms P Lamont: 35 degrees R Lamont: -32 degrees T Lamont: 13 degrees Normal sinus rhythm Left axis deviation Abnormal ECG No previous ECGs available Confirmed by ANGEL ESCOBAR ([id number]) on 12/15/2022 7:43:32 AM [place]: ANGEL ESCOBAR Patient Care team information Care Team Personnel Name: Claudia Barriga MD Position: Reference Physician Member Role: PCP Address: Address: [address] [place] [id number] Name: Judy Altman RN Position: [facility] ED RN W/OE and Tasks Member Role: Patient Care Provider Name: Tatiana GALLEGO, Marcus Position: [facility] Resident Member Role: ED Resident Address: Address: [address] [place] [address] Name: Shavon Finch Position: [facility] ED TA [facility] Member Role: Patient Care Provider Name: Pablo Cabezas MD Position: [facility] ED Medicine MD Member Role: ED Attending Physician Address: Address: [address] [place] [address] Care Team Related Persons Name: RASHMI BENNETT Name: BRIAN HERNANDEZ Name: ESTEFANY AHUMADA Address: home [address] [place], [place] Name: SHAVON AHUMADA Address: [place] [address]
[2023-01-01 14:32] LABS: Bacteria Urine None Seen (None Seen); Hyaline Casts Urine 0-2 /LPF (0-2); RBC Urine 0-2 /HPF (0-2); Squamous Epithelial Cell Urine 0-2 /HPF (0-2); UACC Culture Trigger YES; WBC Urine 21-50 /HPF (0-5)
[2023-01-01 14:34] LABS: MANUAL DIFF FLAG NO
[2023-01-01 14:36] LABS: Basophils Percent Auto 0.4 % (0-2); Eosinophils Percent Auto 0.2 % (0-4); Hematocrit 40.1 % (37.0-47.0); Hemoglobin 13.5 g/dl (12.0-16.0); Imm Gran Abs Auto 0.08 X10*3/uL (0.00-0.03); Imm Gran Pct Auto 0.8 % (0.0-0.4); Lymphocytes Absolute Auto 1.5 X10*3/uL (1.2-4.9); Lymphocytes Percent Auto 14.3 % (20-40); Mean Corpuscular HGB Conc 33.7 g/dl (31.0-35.0); Mean Corpuscular Hemoglobin 30.6 pg (27.0-33.0); Mean Corpuscular Volume 90.9 fL (80.0-98.0); Mean Platelet Volume 10.4 fL (9.4-12.3); Monocytes Absolute Auto 0.7 X10*3/uL (0.1-1.2); Monocytes Percent Auto 7.2 % (2-11); Neutrophils Absolute Auto 7.9 x10*3/uL (2.0-8.3); Neutrophils Percent Auto 77.1 % (45-73); Platelet Count 341 X10*3/uL (160-400); Red Blood Count 4.41 X10*6/uL (4.20-5.50); Red Cell Distribution Width 12.8 % (11.0-16.0); White Blood Count 10.2 X10*3/uL (4.8-10.8)
[2023-01-01 14:52] LABS: Alanine Aminotransferase 23 U/L (0-31); Albumin Level 4.1 g/dL (3.5-5.0); Alkaline Phosphatase 91 U/L (39-117); Anion Gap 12 (12-20); Aspartate Amino Transferase 17 U/L (5-31); Bilirubin Direct 0.1 mg/dL (0.0-0.5); Bilirubin Total 0.4 mg/dL (0.0-1.0); Blood Urea Nitrogen 12 mg/dL (9-16); COVID-19 Test Negative (Negative); Calcium 9.4 mg/dL (8.4-10.2); Carbon Dioxide 26 mmol/L (22-29); Chloride 107 mmol/L (96-108); Creatinine Clr Calc Pharmacy 47.3; Estimated Glomerular Filt Rate > 60; Glucose Random 170 mg/dL (60-115); IDNOW Serial# 08D9AD1C; Potassium 3.6 mmol/L (3.3-5.1); Sodium 141 mmol/L (135-145); Total Protein 6.8 g/dL (6.5-8.0)
--- NOTE | 2023-01-01 16:39 | PC.NURSE ---
patient is laying in stretcher, refused to completely jacket changer, pt has video monitoring in place as she is a flight risk. patient is awake and alert
--- NOTE | 2023-01-01 19:44 | MHC.CARE ---
Case reviewed with Dr. Ramirez. Pt is not requiring a crisis assessment at this time and is appropriate for discharge back to [facility]. residential solar sales consultant made aware.
[2023-01-01 20:35] VITALS: BP 171/76; PULSE 82; RESP 18; TEMP 37.4; O2SAT 96
--- NOTE | 2023-01-01 22:18 | PC.NURSE ---
patient states i refuse that medication referring to the antibiotic prescribed for uti. pt educated on uti and the importance of taking the antibiotic to clear infection. pt states i want the infection i refuse this medicine MD Ramirez aware.
--- NOTE | 2023-01-01 23:25 | PC.NURSE ---
pt waiting for ambulance transport back to facility
== END 2023-01-02 01:07 | disposition home or self-care (01) ==
PROVIDERS: Emergency Provider Emergency Medicine
DX: F03.90 Unspecified dementia, unspecified severity, without behavioral disturbance, psychotic disturbance, mood disturbance, and anxiety (principal); N39.0 Urinary tract infection, site not specified; Z20.822 Contact with and (suspected) exposure to COVID-19; Z20.828 Contact with and (suspected) exposure to other viral communicable diseases; Z79.899 Other long term (current) drug therapy
CPT/HCPCS: 80048; 80076; 81001; 85025; 87086; 87635; 99283; 99284

== ENCOUNTER 2023-01-06 12:21 | Emergency (ER) | payer MEDICARE, SELFPAY ==
--- NOTE | ~2023-01-06 | CT_ITS ---
EXAMINATION: CT HEAD WITHOUT CONTRAST CT CERVICAL SPINE WITHOUT CONTRAST CLINICAL INFORMATION: Fall. Neck pain. COMPARISON: No relevant prior imaging. TECHNIQUE: Workers Compensation Coordinator images were obtained. CT imaging of the head and cervical spine was performed without contrast. Data was reformatted into multiplanar images at the acquisition workstation. This CT examination was performed using dose optimization techniques as appropriate, including one or more of the following: Automated exposure control, iterative reconstruction, and adjustment of technique factors (mA and/or kVp) according to patient size (this includes techniques or standardized protocols for targeted exams where dose is matched to indication/reason for exam). Fleischner Society criteria for the followup of incidental pulmonary nodules was implemented if appropriate. DLP: 799 mGy-cm. FINDINGS: Head: There is no acute intracranial hemorrhage or abnormal extra-axial collection. No intracranial mass effect or midline shift. Lateral and third ventricles are normal. No hydrocephalus. Mcintyre-white matter differentiation is preserved and there is no evidence of acute territorial infarct. The calvarium and skull base are intact. Mastoid air cells and middle ear cavities are well aerated. No active paranasal sinus disease. Cervical spine: There is nonspecific reversal of the cervical lordosis. Alignment is otherwise normal. Vertebral heights are preserved. No acute cervical spine fracture. No abnormal prevertebral soft tissue swelling. Grossly no evidence of spinal canal compromise. Uncovertebral joint spurring causes varying degrees of neuroforaminal encroachment. There is a multinodular thyroid gland. Soft tissues of the neck are otherwise unremarkable. Lung apices are clear. CT/CT head/brain wo IV con IMPRESSION: Head: Grossly no evidence of acute territorial infarct or hemorrhage. Cervical spine: No acute cervical spine fracture and no posttraumatic spinal subluxation. Grossly no spinal canal compromise. Uncovertebral joint spurring causes varying degrees of neuroforaminal encroachment.
--- NOTE | ~2023-01-06 | CT_ITS ---
EXAMINATION: CT HEAD WITHOUT CONTRAST CT CERVICAL SPINE WITHOUT CONTRAST CLINICAL INFORMATION: Fall. Neck pain. COMPARISON: No relevant prior imaging. TECHNIQUE: Insurance Processor images were obtained. CT imaging of the head and cervical spine was performed without contrast. Data was reformatted into multiplanar images at the acquisition workstation. This CT examination was performed using dose optimization techniques as appropriate, including one or more of the following: Automated exposure control, iterative reconstruction, and adjustment of technique factors (mA and/or kVp) according to patient size (this includes techniques or standardized protocols for targeted exams where dose is matched to indication/reason for exam). Fleischner Society criteria for the followup of incidental pulmonary nodules was implemented if appropriate. DLP: 799 mGy-cm. FINDINGS: Head: There is no acute intracranial hemorrhage or abnormal extra-axial collection. No intracranial mass effect or midline shift. Lateral and third ventricles are normal. No hydrocephalus. Mcintyre-white matter differentiation is preserved and there is no evidence of acute territorial infarct. The calvarium and skull base are intact. Mastoid air cells and middle ear cavities are well aerated. No active paranasal sinus disease. Cervical spine: There is nonspecific reversal of the cervical lordosis. Alignment is otherwise normal. Vertebral heights are preserved. No acute cervical spine fracture. No abnormal prevertebral soft tissue swelling. Grossly no evidence of spinal canal compromise. Uncovertebral joint spurring causes varying degrees of neuroforaminal encroachment. There is a multinodular thyroid gland. Soft tissues of the neck are otherwise unremarkable. Lung apices are clear. CT/CT cervical spine wo IV con IMPRESSION: Head: Grossly no evidence of acute territorial infarct or hemorrhage. Cervical spine: No acute cervical spine fracture and no posttraumatic spinal subluxation. Grossly no spinal canal compromise. Uncovertebral joint spurring causes varying degrees of neuroforaminal encroachment.
--- NOTE | 2023-01-06 12:28 | ED.GENADULT ---
HPI - General Adult General Chief complaint: General Medical Stated complaint: COMBATIVE @ LOCKED UNIT OF SNF PER EMS Time Seen by Provider: 01/06/23 15:20 Source: patient Mode of arrival: ambulatory Limitations: other (poor historian dementia ) History of Present Illness HPI narrative: This is a 77-year-old female history of hypertension, hyperlipidemia risk dementia presenting to the emergency department after being combative on her locked dementia unit she, she tells me she sick of it. Patient is alert and oriented x4 when I evaluated her oriented to person, place time and situation. I asked her why she was mad and she tells me multiple reasons . No suicidal ideation or homicidal ideation. No medical complaints. Related Data Home Medications Medication Instructions Recorded Confirmed amlodipine 5 mg tablet 5 mg PO DAILY 11/25/22 11/25/22 valsartan 80 mg tablet (Diovan) 80 mg PO DAILY 11/25/22 11/25/22 Previous Rx's Medication Instructions Recorded amlodipine 5 mg tablet 5 mg PO DAILY #7 tabs 12/04/22 quetiapine 25 mg tablet 25 mg PO Q8H PRN agitation #20 tabs 12/04/22 valsartan 80 mg tablet 80 mg PO DAILY #7 tabs 12/04/22 cefuroxime axetil 500 mg tablet 500 mg PO BID #13 tabs 01/01/23 Allergies Allergy/AdvReac Type Severity Reaction Status Date / Time No Known Allergies Allergy Verified 01/06/23 12:55 [No Known Allergies*] Review of Systems Review of Systems: Constitutional : No Weight loss, No Fever, No Chills, No Fatigue, No Malaise ENT/Mouth : No sore throat, No Rhinorrhea Eyes: No Eye Pain, No Swelling, No Redness Cardiovascular : No Chest Pain, No SOB, No Dyspnea on Exertion, No Orthopnea, No Edema, No Palpitations Respiratory : No Cough, No Sputum, No Wheezing Gastrointestinal : No Nausea, No Vomiting, No Diarrhea, No Constipation, No abdominal Pain, No Hematochezia, No Melena Genitourinary : No Dysuria, No Urinary Frequency, No Hematuria, Musculoskeletal : No joint pain, No Myalgias, No Joint Swelling Skin : No Skin Lesions, No rash Neuro : No Weakness, No Numbness, No Dizziness, No Headache Psych : No Anxiety/Panic, No Depression All other systems reviewed and are negative Yes all other systems are reviewed and are negative [facility] Past Medical History Attestation statement: The following information was validated with the patient. Source: old records reviewed and nursing notes reviewed Medical History Dementia Social History Social History Alcohol intake: never Smoked in Last 30 Days: No Use of substances other than those prescribed or required for medical reasons: No Advance Directives: Yes Advance Directives on File: Yes Advance Directives Date on File: 11/28/22 Physical Exam ED Vital Signs: Vital Signs - 24 hr 01/06/23 12:52 01/06/23 12:55 Temperature 97.9 F Pulse Rate 89 Respiratory Rate 17 18 Blood Pressure 150/75 H Pulse Oximetry 98 Oxygen Delivery Method Room Air BMI result Body Mass Index 24.4 vss Appearance: Alert.? Oriented X3.? No acute distress.? Head: Normocephalic, atraumatic, no step-offs or deformities Eyes: Pupils equal, round and reactive to light.? CVS: Normal heart rate and rhythm.? Pulses normal.? Respiratory: No respiratory distress.? Breath sounds normal.? Abdomen: Soft and nontender.? Skin: Skin warm and dry.? Normal skin color.? Normal skin turgor.? Extremities: No lower extremity edema.? No calf ttp. 5/5 strength to bilateral upper and lower extremities Neuro: Oriented X 3.? No motor deficit.? No sensory deficit. CN 2-12 intact Course Reevaluation(s) Reevaluation #1: I was informed that patient escaped from the department. Patient ran out of this hospital and went down to the main road on [facility], this provider ran to find her, I 1st saw her by the hospital entrance on [address] running in the pouring rain. Patient started to run, tried to jump off of the retaining wall multiple times, I stopped patient from doing this. Once acuity arrive patient jumped, she landed on her feet, stumbled, hit her head on wet grass, no loss of consciousness. After the fall neuro exam nonfocal, cerebellar intact. Not complaining of headache. Will scan her head for safety. RN to do incident report Time: 14:06 Reevaluation #2: Patient's CBC appears to be within normal limits. Chemistry unremarkable. UA with no acute findings. CT head cervical spine pending. Time: 15:36 Reevaluation #3: Sign to night provider Beka pending imaging Time: 15:37 Medical Decision Making Medical Decision Making [facility] Narrative: 1231 77-year-old female presents after being combative [facility], she tells me I was a little combative Patient alert and oriented x4. Unremarkable physical exam. This is likely dementia with behavioral presentation. Unlikely metabolic derangements. Will rule out UTI however no UTI symptoms Plan at this time medical clearance discharge back to the [facility] once medically cleared Differential Diagnosis Differential Diagnoses: The differential diagnosis associated with the presentation includes This is likely dementia with behavioral presentation. Unlikely metabolic derangements. Will rule out UTI however no UTI symptoms Admission/Observation Consideration of admission/observation: Escalation of care including admission/observation considered Unlikely Lab Data [facility] Lab Attestation statement: I reviewed the patient's lab results. 01/06/23 13:40 01/06/23 13:40 Labs: Lab Results 01/06/23 01/06/23 Range/Units 13:40 15:16 WBC 9.3 (4.8-10.8) X10*3/uL RBC 4.74 (4.20-5.50) X10*6/uL Hgb 14.5 (12.0-16.0) g/dl Hct 42.7 (37.0-47.0) % MCV 90.1 (80.0-98.0) fL MCH 30.6 (27.0-33.0) pg MCHC 34.0 (31.0-35.0) g/dl RDW 12.8 (11.0-16.0) % Plt Count 395 (160-400) X10*3/uL MPV 10.1 (9.4-12.3) fL Immature Gran % (Auto) 0.6 H (0.0-0.4) % Neut % (Auto) 79.8 H (45-73) % Lymph % (Auto) 12.4 L (20-40) % [place] % (Auto) 6.8 (2-11) % Eos % (Auto) 0.1 (0-4) % Baso % (Auto) 0.3 (0-2) % Lymph # (Auto) 1.2 (1.2-4.9) X10*3/uL [place] # (Auto) 0.6 (0.1-1.2) X10*3/uL Eos # (Auto) 0.0 (0.0-0.4) X10*3/uL Baso # (Auto) 0.0 (0.0-0.2) X10*3/uL Abs Immat Gran (auto) 0.06 H (0.00-0.03) X10*3/uL Absolute Neuts (auto) 7.4 (2.0-8.3) x10*3/uL Absolute Nucleated RBC 0.000 (0.0-0.012) X10*3/uL Nucleated RBC % (auto) 0.0 (0.0-0.2) /100WBC Sodium 143 (135-145) mmol/L Potassium 4.0 (3.3-5.1) mmol/L Chloride 106 (96-108) mmol/L Carbon Dioxide 25 (22-29) mmol/L Anion Gap 16 (12-20) BUN 11 (9-16) mg/dL Creatinine 0.78 (0.5-1.4) mg/dL Estim Creat Clear Calc 49.1 Estimated GFR > 60 Random Glucose 171 H (60-115) mg/dL Calcium 10.3 H D (8.4-10.2) mg/dL Magnesium 2.3 (1.6-2.6) mg/dL Total Bilirubin 0.5 (0.0-1.0) mg/dL AST 15 (5-31) U/L ALT 25 (0-31) U/L Alkaline Phosphatase 105 (39-117) U/L Total Protein 7.6 (6.5-8.0) g/dL Albumin 4.7 (3.5-5.0) g/dL Urine Color Yellow Urine Appearance Clear Urine pH 6.5 (5.0-9.0) Ur Specific [place] <= 1.005 (1.005-1.025) Urine Protein Negative (Neg-Trace) mg/dL Urine Glucose (UA) Negative (Negative) mg/dL Urine Ketones Negative (Negative) mg/dL Urine Blood Negative (Negative) Urine Nitrite Negative (Negative) Ur Leukocyte Esterase Moderate (2+) H (Negative) Urine RBC 0-2 (0-2) /HPF Urine WBC 11-20 H (0-5) /HPF Ur Squamous Epith Cells 0-2 (0-2) /HPF Urine Bacteria None Seen (None Seen) Hyaline Casts 0-2 (0-2) /LPF Core Measures AMI core measures followed: Yes Measure exclusions: not indicated Critical Care Time Critical Care Time Critical Care Time: No Discharge Plan Discharge Clinical Impression: Dementia, Fall Patient Disposition: Still a Patient Instructions: Dementia (ED) Additional Instructions: Take your medications as prescribed. If you were prescribed antibiotics today, it is important that you take your medication to their entirety, do not skip any doses, do not finish them early. Follow-up with your primary care provider this week. Return to the emergency department with new or worsening symptoms. Such as fevers, chills, chest pain, shortness of breath, nausea, vomiting, dizziness, headache, vision changes, lethargy In case of emergency call 911 Prescriptions: No Action valsartan [Diovan] 80 mg tablet 80 mg PO DAILY amlodipine 5 mg tablet 5 mg PO DAILY amlodipine 5 mg tablet 5 mg PO DAILY Qty: 7 0RF valsartan 80 mg tablet 80 mg PO DAILY Qty: 7 0RF quetiapine 25 mg tablet 25 mg PO Q8H PRN (Reason: agitation) Qty: 20 0RF cefuroxime axetil 500 mg tablet 500 mg PO BID Qty: 13 0RF Referrals: Physician,Nonstaff [Primary Care Provider] - 2 days
--- NOTE | 2023-01-06 12:50 | PC.NURSE ---
pt ambulated to the bathroom to provided a urine sample but unfortunately is unable to provided a sample at this time. pt also reports that she is currently being treated for an uti
[2023-01-06 12:52] VITALS: BP 150/75; PULSE 89; RESP 17; TEMP 36.6; O2SAT 98; BMI 24.4
[2023-01-06 12:55] VITALS: RESP 18
--- NOTE | 2023-01-06 12:56 | PC.NURSE ---
pt is a&ox3. respirations even and unlabored. pt coming from the [facility] facility in [place] for being aggressive towards staff. pt reports she has been bad and states she was aggressive because they would not let me have my freedom . pt currently sitting talking to this RN and is calm and corporative. pt gets up and wanders but is easily redirected.
[2023-01-06 13:44] LABS: MANUAL DIFF FLAG NO
[2023-01-06 13:45] LABS: Basophils Percent Auto 0.3 % (0-2); Eosinophils Percent Auto 0.1 % (0-4); Hematocrit 42.7 % (37.0-47.0); Hemoglobin 14.5 g/dl (12.0-16.0); Imm Gran Abs Auto 0.06 X10*3/uL (0.00-0.03); Imm Gran Pct Auto 0.6 % (0.0-0.4); Lymphocytes Absolute Auto 1.2 X10*3/uL (1.2-4.9); Lymphocytes Percent Auto 12.4 % (20-40); Mean Corpuscular Hemoglobin 30.6 pg (27.0-33.0); Mean Corpuscular Volume 90.1 fL (80.0-98.0); Mean Platelet Volume 10.1 fL (9.4-12.3); Monocytes Absolute Auto 0.6 X10*3/uL (0.1-1.2); Monocytes Percent Auto 6.8 % (2-11); Neutrophils Absolute Auto 7.4 x10*3/uL (2.0-8.3); Neutrophils Percent Auto 79.8 % (45-73); Platelet Count 395 X10*3/uL (160-400); Red Blood Count 4.74 X10*6/uL (4.20-5.50); Red Cell Distribution Width 12.8 % (11.0-16.0); White Blood Count 9.3 X10*3/uL (4.8-10.8)
--- NOTE | 2023-01-06 13:50 | PC.NURSE ---
upon return from lunch break, pt noted to not to be in assigned patient care space. all ED staff aware and searching for pt. pt found wandering on [address] by Katarzyna HOLLAND and . pt escorted right into the locked unit psych pod in the ED.
[2023-01-06 13:57] LABS: Alanine Aminotransferase 25 U/L (0-31); Albumin Level 4.7 g/dL (3.5-5.0); Alkaline Phosphatase 105 U/L (39-117); Anion Gap 16 (12-20); Aspartate Amino Transferase 15 U/L (5-31); Bilirubin Total 0.5 mg/dL (0.0-1.0); Blood Urea Nitrogen 11 mg/dL (9-16); Calcium 10.3 mg/dL (8.4-10.2); Carbon Dioxide 25 mmol/L (22-29); Chloride 106 mmol/L (96-108); Creatinine Clr Calc Pharmacy 49.1; Estimated Glomerular Filt Rate > 60; Glucose Random 171 mg/dL (60-115); Magnesium 2.3 mg/dL (1.6-2.6); Sodium 143 mmol/L (135-145); Total Protein 7.6 g/dL (6.5-8.0)
[2023-01-06 15:31] LABS: Appearance Urine Clear; Color Urine Yellow; Glucose Urine UA Negative (Negative); Leukocyte Esterase Urine Moderate (2+) (Negative); Nitrite Urine Negative (Negative); PH 6.5 (5.0-9.0); Specific Gravity - Urine <= 1.005 (1.005-1.025); UMIC TRIGGER UACC YES; Urine Blood Negative (Negative); Urine Ketones Negative (Negative); Urine Protein Negative (Neg-Trace)
[2023-01-06 15:33] LABS: Bacteria Urine None Seen (None Seen); Hyaline Casts Urine 0-2 /LPF (0-2); RBC Urine 0-2 /HPF (0-2); Squamous Epithelial Cell Urine 0-2 /HPF (0-2); UACC Culture Trigger YES
--- NOTE | 2023-01-06 15:33 | MHC.CARE ---
SNF contacted CARE team to inform us they would not be accepting pt back until the morning due to pt's aggressive behaviors and lack of staffing to appropriately care for pt.
--- NOTE | 2023-01-06 15:34 | PC.NURSE ---
Patient experiencing increased confusion, refusing to get changed over. Was given a snack and fluids. Awaiting test results.
[2023-01-06] MEDS: amLODIPine Besylate 2.5 MG TABLET PO (19:55)
[2023-01-06] MEDS: Valsartan 80 MG TABLET PO (19:55)
[2023-01-06 19:59] VITALS: BP 182/85; PULSE 85; RESP 18; TEMP 36.6; O2SAT 97
[2023-01-06 20:12] LABS: Amphetamine Screen Urine Not Detected (Not Detect); Barbiturates, Urine Not Detected (Not Detect); Benzodiazepines Screen Urine Not Detected (Not Detect); Cannabinoid Screen Urine Not Detected (Not Detect); Cocaine Screen Urine Not Detected (Not Detect); Fentanyl, urine Not Detected (Not Detect); Opiate Screen Urine Not Detected (Not Detect); Phencyclidine Screen Urine Not Detected (Not Detect)
[2023-01-06] MEDS: QUEtiapine Fumarate 25 MG TABLET PO (23:01)
[2023-01-06 23:03] VITALS: BP 158/80; PULSE 80; RESP 17; TEMP 36.6
--- NOTE | 2023-01-07 05:35 | PC.NURSE ---
Patient slept through the night, no distress observed/reported, medication compliant, behavior non concerning, Care Team is coordinating discharge back SNF may return back today, VSS, labs completed/reported, will continue to monitor,
[2023-01-07 07:26] VITALS: BP 132/73; PULSE 92; RESP 16; TEMP 36.6; O2SAT 97
[2023-01-07] MEDS: Valsartan 80 MG TABLET PO (07:31)
[2023-01-07] MEDS: amLODIPine Besylate 2.5 MG TABLET PO (07:31)
--- NOTE | 2023-01-07 08:01 | PC.NURSE ---
Marina was OOB and ate 75% of her breakfast. She was adherent with her AM medications and was able to tell this keno writer the name of the medication and what it was given for. Marina was pleasant on engagement. Oriented to person and place, was able to remember day with a little prodding. Ambulated to the bathroom and had a slow but steady gait. No behavioral concerns noted.
--- NOTE | 2023-01-07 08:22 | MHC.CARE ---
Case reviewed with Dr. Prince. Pt is not requiring a crisis assessment at this time and is appropriate for discharge back to [facility]. Pt resides in 24hr locked nursing facility. Pod RN made aware.
== END 2023-01-07 12:35 ==
PROVIDERS: Physician Assistant; Emergency Provider Emergency Medicine
DX: S09.90XA Unspecified injury of head, initial encounter (principal); M54.2 Cervicalgia; F03.90 Unspecified dementia, unspecified severity, without behavioral disturbance, psychotic disturbance, mood disturbance, and anxiety; W13.8XXA Fall from, out of or through other building or structure, initial encounter; Y92.410 Unspecified street and highway as the place of occurrence of the external cause; Y93.9 Activity, unspecified; Y99.9 Unspecified external cause status; Z79.899 Other long term (current) drug therapy
CPT/HCPCS: 36415; 70450; 72125; 80053; 80307; 81001; 83735; 85025; 87086; 99284